=== PATIENT | male | born 1950 | race Hispanic/Latino ===

== ENCOUNTER 2024-01-13 07:40 | Emergency (ER) | payer MEDICAID ==
[2024-01-13] MEDS ORDERED: HYDRALAZINE HCL 25 MG TABLET ONE (08:08)
[2024-01-13 08:10] LABS: Absolute Eosinophils 0.2 K/uL (0-0.5); Absolute Lymphocytes (CBC) 1.7 K/uL (0.7-4.9); Absolute Monocytes 0.6 K/uL (0.1-1.3); Absolute Neutrophil 4.8 K/uL (1.8-8.0); Basophils % 0.4 % (0-1.3); Eosinophils % 3.1 % (0-4.4); Hematocrit 48.1 % (39.6-49.0); Hemoglobin 16.1 g/dL (13.6-17.9); Lymphocytes % 23.3 % (15.3-44.8); MCH 29.3 pg (27.0-35.0); MCHC 33.6 g/dL (32.0-36.0); MCV 87.3 fL (80-100); Monocytes % 8.1 % (3.3-12.3); Neutrophils % 65.1 % (41.7-73.7); Nucleated Red Blood Cells % 0.1 % (0-0); Platelets 221 thou/uL (152-406); RBC Red Blood Cell Count 5.51 M/uL (4.33-5.43); Red Cell Distribution Width 14.5 % (12.1-15.2)
[2024-01-13 08:41] LABS: Albumin/Globulin Ratio 1.2 (1.1-1.8); Anion Gap 8.5 mEq/L (5.0-15.0); Bilirubin Direct 0.2 mg/dL (0-0.2); Bilirubin Indirect, Calculated 0.6 mg/dL (0.2-0.8); Bilirubin Total 0.8 mg/dL (0.2-1.0); Globulin 3.4 g/dL (2.3-3.5); Magnesium 2.1 mg/dL (1.6-2.4); Potassium 3.5 mEq/L (3.5-5.1); Protein, Total 7.4 g/dL (6.4-8.2); Thyroid Stimulating Hormone 2.25 uIU/mL (0.358-3.740); Troponin High Sensitivity 12.1 pg/mL (<58.9)
--- NOTE | 2024-01-13 09:15 | RAD REPORT ---
Procedure: Chest Single View HISTORY: Chest pain COMPARISON: none FINDINGS: Lucency right lung base. The lungs appear clear of acute infiltrate. No significant pleural effusion noted. The heart is borderline enlarged. IMPRESSION: Lucency right lung base probably not significant. However, a small basilar pneumothorax can have this appearance. It is recommended that the patient have a chest film in expiration for further evaluation.
--- NOTE | 2024-01-13 10:01 | RAD REPORT ---
EXAM:Thorax Wo Con CLINICAL INDICATION: Chest pain TECHNIQUE: CT chest performed.. Axial, sagittal and coronal reconstructions were obtained. One or mor e of the following dose reduction techniques were used: Automated exposure control, adjustment of the mA and/or kV according to the patient size, and/or iterative reconstruction. Unless otherwise specified, incidental findings do not require dedicated imaging follow-up. [id number]. COMPARISON: January 13, 2024 chest x-ray FINDINGS: 4 mm nodule left lower lobe. Right lung clear. No pneumothorax. No mediastinal or hilar lymphadenopathy No pleural effusion. No pericardial effusion Coronary arterial calcifications. Small hiatal hernia IMPRESSION: 4 mm nodule left lower lobe. Per Fleischner recommendations low-risk patients: no routine follow-up required high-risk patients: optional CT at 12 months.
--- NOTE | 2024-01-13 10:27 | EDPHYS ---
Physician Documentation [facility] Name: Rodrigo Wynn Sr Age: 73 yrs Sex: Male : 1950 Arrival Date: 01/13/2024 Time: 07:40 Bed 4 Private MD: ED Physician Keron Jones HPI: 01/12 08:05 This 73 yrs old Male presents to ER via Ambulatory with complaints of Palpitations. rt 08:05 Patient presents to the ED with palpitations, mild chest pain. Patient states that he rt has had the palpitations off and on for about a month, states that it was stronger today. Patient states that he has the feeling that his heart pauses for about 3 seconds. Has not felt that since arriving to the emergency department. He denies other acute complaints at this time, symptoms are moderate in severity, no other aggravating or alleviating factors.. Historical: - Allergies: 07:53 No Known Allergies; ss - PMHx: 07:53 Diabetes mellitus; Hypertensive disorder; Neuropathy; ss - Immunization history:: Adult Immunizations unknown. - Infectious Disease History:: Denies. - Social history:: Smoking status: Patient denies any tobacco usage or history of. - Family history:: not pertinent. ROS: 08:05 Constitutional: Negative for fever, chills, and weight loss, Respiratory: Negative for rt shortness of breath, cough, wheezing, and pleuritic chest pain, Abdomen/GI: Negative for abdominal pain, nausea, vomiting, diarrhea, and constipation, MS/Extremity: Negative for injury and deformity, Skin: Negative for injury, rash, and discoloration, Neuro: Negative for headache, weakness, numbness, tingling, and seizure, 08:05 Cardiovascular: Positive for chest pain, palpitations, Exam: 08:05 Constitutional: This is a well developed, well nourished patient who is awake, alert, rt and in no acute distress. Head/Face: Normocephalic, atraumatic. Chest/axilla: Normal chest wall appearance and motion. Nontender with no deformity. No lesions are appreciated. Cardiovascular: Regular rate and rhythm with a normal S1 and S2. No gallops, murmurs, or rubs. Normal PMI, no JVD. No pulse deficits. Respiratory: Lungs have equal breath sounds bilaterally, clear to auscultation and percussion. No rales, rhonchi or wheezes noted. No increased work of breathing, no retractions or nasal flaring. Abdomen/GI: Soft, non-tender, with normal bowel sounds. No distension or tympany. No guarding or rebound. No evidence of tenderness throughout. Skin: Warm, dry with normal turgor. Normal color with no rashes, no lesions, and no evidence of cellulitis. MS/ Extremity: Pulses equal, no cyanosis. Neurovascular intact. Full, normal range of motion. Neuro: Awake and alert, GCS 15, oriented to person, place, time, and situation. Cranial nerves II-XII grossly intact. Motor strength 5/5 in all extremities. Sensory grossly intact. Cerebellar exam normal. Normal gait. 08:05 ECG was reviewed by the Attending Physician. Vital Signs: 07:52 BP 196 / 69; Pulse 71; Resp 16; Temp 97.6(O); Pulse Ox 98% on R/A; Weight 74.84 kg; ss Height 5 ft. 5 in. ; Pain 2/10; 08:28 BP 191 / 71; Pulse 59; Resp 16; Pulse Ox 98% on R/A; mb9 08:43 BP 150 / 67; Pulse 59; Resp 16; Pulse Ox 100% on R/A; iw 10:30 BP 154 / 67; Pulse 60; Resp 16; Pulse Ox 100% on R/A; cm10 07:52 Body Mass Index 27.46 (74.84 kg, 165.1 cm) ss 07:52 Pain Scale: Adult ss MDM: 07:55 Medical Screening Exam initiated rt 10:50 Differential diagnosis: Dysrhythmia, ACS, pneumonia, pneumothorax, nonspecific chest rt pain. Data reviewed: vital signs, nurses notes, lab test result(s), EKG, radiologic studies. Consideration of Admission/Observation Escalation of care including admission/observation considered. Offered patient admission to the hospital for chest pain workup, declines, states that he wishes to go home and follow-up with his face and fill packer as an outpatient. Patient without pneumothorax on CT scan, repeat troponin is unremarkable, states the symptoms are improving. Strict return precautions were discussed with the patient. He was informed of findings of pulmonary nodule on the CT scan and instructed to follow-up with his primary care for further surveillance.. Independent interpretation of the following test(s) in the Emergency Department CT Scan: My interpretation is No pneumothorax seen on my interpretation of CT scan images. Care significantly affected by the following chronic conditions: Diabetes, Hypertension. Counseling: I had a detailed discussion with the patient and/or guardian regarding the historical points, exam findings, and any diagnostic results supporting the discharge/admit diagnosis, lab results, radiology results, the need for outpatient follow up, to return to the emergency department if symptoms worsen or persist or if there are any questions or concerns that arise at home. Response to treatment: the patient's symptoms have markedly improved after treatment. 01/12 08:02 Order name: Basic Metabolic Panel; Complete Time: 08:44 rt 01/12 08:02 Order name: CBC with Diff; Complete Time: 08:44 rt 01/12 08:02 Order name: LFT's; Complete Time: 08:44 rt 01/12 08:02 Order name: Troponin HS; Complete Time: 08:44 rt 01/12 08:02 Order name: Magnesium; Complete Time: 08:44 rt 01/12 08:02 Order name: TSH; Complete Time: 08:44 rt 01/12 09:36 Order name: Troponin High Sensitivity; Complete Time: 10:23 rt 01/12 08:02 Order name: XRAY Chest (1 view); Complete Time: 09:16 rt 01/12 09:36 Order name: CT Chest Wo Con; Complete Time: 10:09 rt 01/12 08:02 Order name: Cardiac monitoring; Complete Time: 08:03 rt 01/12 08:02 Order name: EKG - Nurse/Tech; Complete Time: 08:03 rt 01/12 08:02 Order name: IV Saline Lock; Complete Time: 08:03 rt 01/12 08:02 Order name: Labs collected and sent; Complete Time: 08:03 rt 01/12 08:02 Order name: O2 Per Protocol; Complete Time: 08:03 rt 01/12 08:02 Order name: O2 Sat Monitoring; Complete Time: 08:03 rt EC:05 Rate is 60 beats/min. Rhythm is regular, Normal Sinus Rhythm with No ectopy. Left axis rt deviation noted. DE interval is normal. QRS interval is normal. QT interval is normal. No Q waves. T waves are Normal. No ST changes noted. Interpreted by me. Administered Medications: 08:12 Drug: HydrALAZINE PO 50 mg PO once Route: PO; 11:02 Follow up: Response: No adverse reaction cm10 Disposition Summary: 01/13/24 10:26 Discharge Ordered Notes: Location: Home rt Problem: new rt Symptoms: have improved rt Condition: Stable rt Diagnosis - Palpitations rt - Solitary pulmonary nodule rt Followup: rt - With: Private Physician - When: 2 - 3 days - Reason: Discharge Instructions: - Discharge Summary Sheet rt - Palpitations rt - Pulmonary Nodule rt Forms: - Medication Reconciliation Form rt - Antibiotic Education rt - Prescription Opioid Use rt - Patient Portal Instructions rt - Leadership Thank You Letter rt Signatures: Dispatcher [employer] Connie Alvarado, RN RN iw Alisson Bennett RN RN ss Keron Jones MD MD rt Rosy Zheng RN RN cm10 Corrections: (The following items were deleted from the chart) 08:02 08:02 BASIC METABOLIC PANEL+C.LAB.BRZ ordered. EDMS EDMS 08:02 08:02 CBC+H.LAB.BRZ ordered. EDMS EDMS 08:02 08:02 HEPATIC FUNCTION+C.LAB.BRZ ordered. EDMS EDMS 08:02 08:02 Troponin High Sensitivity+C.LAB.BRZ ordered. EDMS EDMS 08:02 08:02 MAGNESIUM+C.LAB.BRZ ordered. EDMS EDMS 08:02 08:02 THYROID STIMULAT HORMONE+C.LAB.BRZ ordered. EDMS EDMS 08:02 08:02 Chest Single View+RAD.RAD.BRZ ordered. EDMS EDMS
--- NOTE | 2024-01-13 10:27 | ER ---
Nurse's Notes [facility] Name: Rodrigo Wynn Sr Age: 73 yrs Sex: Male : 1950 Arrival Date: 01/13/2024 Time: 07:40 Bed 4 Private MD: Diagnosis: Palpitations;Solitary pulmonary nodule Presentation: 01/12 07:52 Chief complaint: Patient states: heart palpitations that began this morning. ss Coronavirus screen: Client denies travel out of the [place] in the last 14 days. Ebola Screen: Patient denies exposure to infectious person. Patient denies travel to an Ebola-affected area in the 21 days before illness onset. Initial Sepsis Screen: Does the patient meet any 2 criteria? No. Patient's initial sepsis screen is negative. Does the patient have a suspected source of infection? No. Patient's initial sepsis screen is negative. Risk Assessment: Do you want to hurt yourself or someone else? Patient reports no desire to harm self or others. Onset of symptoms was January 13, 2024. 07:52 Method Of Arrival: Ambulatory 07:52 Acuity: RYAN 3 ss Historical: - Allergies: 07:53 No Known Allergies; ss - PMHx: 07:53 Diabetes mellitus; Hypertensive disorder; Neuropathy; ss - Immunization history:: Adult Immunizations unknown. - Infectious Disease History:: Denies. - Social history:: Smoking status: Patient denies any tobacco usage or history of. - Family history:: not pertinent. Screenin:57 [facility] ED Fall Risk Assessment (Adult) History of falling in the last 3 months, iw including since admission No falls in past 3 months (0 pts) Confusion or Disorientation No (0 pts) Intoxicated or Sedated No (0 pts) Impaired Gait No (0 pts) Mobility Assist Device Used No (0 pt) Altered Elimination No (0 pt) Score/Fall Risk Level 0 - 2 = Low Risk Oriented to surroundings, Maintained a safe environment. Abuse screen: Denies injuries from another. Nutritional screening: No deficits noted. Tuberculosis screening: No symptoms or risk factors identified. Assessment: 07:56 General: Appears in no apparent distress. Behavior is calm, cooperative. Pain: iw Complains of pain in chest Pain currently is 2 out of 10 on a pain scale. Neuro: Level of Consciousness is awake, alert, obeys commands, Oriented to person, place, time, situation, Moves all extremities. Full function. Cardiovascular: Capillary refill < 3 seconds in bilateral fingers Patient's skin is warm and dry. Respiratory: Respiratory effort is even, unlabored, Respiratory pattern is regular, symmetrical. GI: Abdomen is flat, non-distended. Derm: Skin is intact, is healthy with good turgor. Musculoskeletal: Range of motion: intact in all extremities. 08:43 Reassessment: Patient appears in no apparent distress at this time. Patient and/or iw family updated on plan of care and expected duration. Pain level reassessed. Patient is alert, oriented x 3, equal unlabored respirations, skin warm/dry/pink. 10:55 Reassessment: Patient appears in no apparent distress at this time. No changes from cm10 previously documented assessment. Patient and/or family updated on plan of care and expected duration. Pain level reassessed. Patient is alert, oriented x 3, equal unlabored respirations, skin warm/dry/pink. Vital Signs: 07:52 BP 196 / 69; Pulse 71; Resp 16; Temp 97.6(O); Pulse Ox 98% on R/A; Weight 74.84 kg; ss Height 5 ft. 5 in. ; Pain 2/10; 08:28 BP 191 / 71; Pulse 59; Resp 16; Pulse Ox 98% on R/A; mb9 08:43 BP 150 / 67; Pulse 59; Resp 16; Pulse Ox 100% on R/A; iw 10:30 BP 154 / 67; Pulse 60; Resp 16; Pulse Ox 100% on R/A; cm10 07:52 Body Mass Index 27.46 (74.84 kg, 165.1 cm) ss 07:52 Pain Scale: Adult ss ED Course: 07:41 Patient arrived in ED. mr 07:43 Keron Jones MD is Attending Physician. rt 07:45 Hanna Trejo RN is Primary Nurse. mb9 07:53 Triage completed. ss 07:53 Arm band placed on right wrist. ss 07:55 Initial lab(s) drawn, by me, held in ED. Inserted saline lock: 20 gauge in right wrist, iw using aseptic technique. Blood collected. Flushed with 10 mL NS. 07:57 Patient has correct armband on for positive identification. Provided Education on: plan iw of care . Client placed on continuous cardiac and pulse oximetry monitoring. NIBP monitoring applied. instructor trainer canine service on. 08:03 Connie Hoskins, RN is Primary Nurse. iw 09:04 XRAY Chest (1 view) In Process Unspecified. EDMS 09:51 CT Chest Wo Con In Process Unspecified. EDMS 11:00 No provider procedures requiring assistance completed. Patient did not have IV access cm10 during this emergency room visit. Administered Medications: 08:12 Drug: HydrALAZINE PO 50 mg PO once Route: PO; iw 11:02 Follow up: Response: No adverse reaction cm10 Medication: 07:56 VIS not applicable for this client. iw Outcome: 10:26 Discharge ordered by . rt 11:00 Discharged to home ambulatory, with family, cm10 11:00 Condition: good 11:00 Discharge instructions given to patient, family, Instructed on discharge instructions, follow up and referral plans. Demonstrated understanding of instructions, follow-up care, 11:02 Patient left the ED. cm10 Signatures: Dispatcher [employer] EDAL Hanna Berg, Reg Reg mr Connie Hoskins, RN RN Alisson Bennett, MARTIN RN Hanna Mejia, RN RN mbKeron Rios MD MD rt Martinez, Clarissa, RN RN cm10
[2024-01-13 11:12] VITALS: TEMP 97.6
[2024-01-13 11:17] VITALS: O2SAT 100
[2024-01-13 11:18] VITALS: BP 154/67
--- NOTE | 2024-01-14 14:51 | EKG ---
Test Date: 2024-01-13 Test Time: 07:52:31 Final Canoe Inspector: LAYTON MEASUREMENT RESULTS: Intervals: Rate: 60 OR: 158 QRSD: 104 QT: 438 QTc: 438 [place]: P: 58 OR: 158 QRS: -44 T: 54 INTERPRETIVE STATEMENTS: Normal sinus rhythm Left axis deviation Abnormal ECG No previous ECG available for comparison Electronically Signed On 01-14-24 14:46:51 CDT by Alexsander Trimble
== END 2024-01-13 11:02 | disposition home or self-care (01) ==
LOC: ER 07:40
DX: R00.2 Palpitations (principal); R91.1 Solitary pulmonary nodule; R07.9 Chest pain, unspecified; I10 Essential (primary) hypertension; E11.9 Type 2 diabetes mellitus without complications
CPT/HCPCS: 36415; 71045; 71250; 80048; 80076; 83735; 84443; 84484; 85025; 93005